=== PATIENT | male | born 1950 | race Hispanic/Latino ===

== ENCOUNTER 2021-07-17 08:38 | Emergency (ER) | payer SELFPAY ==
[~2021-07-17] VITALS: Ht 152.4 cm; Wt 65.2 kg
[2021-07-17 09:30] VITALS: BP 112/79
== END 2021-07-17 09:33 | disposition home or self-care (01) | DRG 156 ==
LOC: ED 08:38
DX: H73.892 Other specified disorders of tympanic membrane, left ear (principal)